=== PATIENT | male | born 1970 | race Caucasian/White ===

== ENCOUNTER 2018-11-04 15:27 | Inpatient (IN) | payer MEDICAID ==
[2018-11-04] VITALS (10 sets, daily range): BP systolic 124–151; BP diastolic 58–83
[~2018-11-04] VITALS: Ht 185.4 cm; Wt 139.0 kg
[2018-11-04 16:44] LABS: BASOPHILS # (AUTO) 0.1 X10'3 (0-0.2); EOSINOPHILS # (AUTO) 0.1 X10'3 (0-0.9); LYMPHOCYTES # (AUTO) 0.7 X10'3 (1.1-4.8); MONOCYTES # (AUTO) 0.7 X10'3 (0-0.9); NEUTROPHILS # (AUTO) 2.8 X10'3 (1.8-7.7)
[2018-11-04 16:46] LABS: EOSINOPHILS % (AUTO) 1.4 % (0-6); LYMPHOCYTES % (AUTO) 15.9 % (21-51); MEAN CORPUSCULAR HEMOGLOBIN 43.5 PG (27.0-31.0); MEAN CORPUSCULAR HGB CONC 33.1 g/dL (33.0-36.5); MEAN CORPUSCULAR VOLUME 131.6 FL (78-98); MEAN PLATELET VOLUME 7.5 FL (7.4-10.4); NEUTROPHILS % (AUTO) 64.7 % (42-75); PLATELET COUNT 115 X10'3 (140-440); RED BLOOD COUNT 1.07 X10'6 (4.70-6.10); RED CELL DISTRIBUTION WIDTH 18.9 % (11.5-14.5); WHITE BLOOD COUNT 4.4 X10'3 (4.5-11.0)
[2018-11-04 16:56] LABS: ALANINE AMINOTRANSFERASE 28 U/L (12-78); ALBUMIN 2.1 G/DL (3.4-5.0); ALKALINE PHOSPHATASE 67 IU/L (46-116); ANION GAP 14 (8-16); ASPARTATE AMINO TRANSFERASE 61 U/L (10-37); BILIRUBIN,TOTAL 12.2 MG/DL (0.1-1.0); BLOOD UREA NITROGEN 15 MG/DL (7-18); BUN/CREATININE RATIO 14.2 (5.4-32.0); CALCIUM 8.1 MG/DL (8.5-10.1); CHLORIDE 106 MMOL/L (99-107); CREATININE 1.06 MG/DL (0.60-1.10); GLUCOSE 115 MG/DL (70-104); HEMOGLOBIN 4.6 g/dl (14.0-17.9); MAGNESIUM 1.9 MG/DL (1.5-2.4); POTASSIUM 3.5 MMOL/L (3.5-5.1); SODIUM 140 MMOL/L (135-145); TOTAL CARBON DIOXIDE 20.2 MMOL/L (24-32); eGFR 74 ML/MIN
[2018-11-04 17:04] LABS: PLATELET ESTIMATE DECREASED
[2018-11-04 17:05] LABS: POLYCHROMASIA 2+
[2018-11-04 17:06] LABS: TEAR DROP CELLS 2+
[2018-11-04 17:08] LABS: ACANTHOCYTES FEW; ANISOCYTOSIS 2+; BURR CELLS FEW; ELLIPTOCYTES FEW
[2018-11-04 17:11] LABS: ROULEAUX 1+
[2018-11-04 17:34] LABS: ALBUMIN/GLOBULIN RATIO 0.4 (1.1-1.5); TOTAL PROTEIN 6.8 G/DL (6.4-8.2)
[2018-11-04] MEDS ORDERED: pantoprazole 40 MG vial IV ONE (17:35)
[2018-11-04] MEDS ORDERED: KEN0.1O TOP (17:59)
[2018-11-04] MEDS ORDERED: LEVO175T7 PO (17:59)
[2018-11-04] MEDS ORDERED: BETA15CR40 TOP (17:59)
[2018-11-04] MEDS ORDERED: OMEP20CA11 PO (17:59)
[2018-11-04] MEDS ORDERED: octreotide 100mcg/1 ml ampule IV ONE (18:15)
[2018-11-04] MEDS ORDERED: OCTREOTIDE 1,250 MCG in NS 250ml IV.SOLN IV SCH (18:15)
[2018-11-04 18:18] LABS: PARTIAL THROMBOPLASTIN TIME 35 SECONDS (22-32)
--- NOTE | 2018-11-04 20:33 | NUR ---
BARBARA GERBER, AT BEDSIDE FOR ADMISSION TO [facility]. JUST FINISHED 1ST OF 2 UNITS PRBC'S.
[2018-11-04] MEDS ORDERED: pantoprazole 40MG/NS 100ML BAG 100 ML IV SCH (21:00)
[2018-11-04] MEDS ORDERED: ondansetron/PF 4mg/2ml inj IV PRN (21:40)
[2018-11-04] MEDS ORDERED: LORazepam 2 mg/ml vial IV PRN (21:40)
[2018-11-04] MEDS ORDERED: glucagon, human recombinant 1mg kit SUBCUT PRN (21:40)
[2018-11-04] MEDS ORDERED: dextrose ORAL solution 15 GM/59 ML bottle PO PRN ×2 (21:40)
[2018-11-04] MEDS ORDERED: magnesium 2GM in 50ml NS 50 ML IV PRN (21:40)
[2018-11-04] MEDS ORDERED: acetaminophen 325mg tablet PO PRN ×2 (21:40)
[2018-11-04] MEDS ORDERED: magnesium 4gm in 100ml NS 100 ML IV PRN (21:40)
[2018-11-04] MEDS ORDERED: acetaminophen 650mg rectal suppository RC PRN (21:40)
[2018-11-04] MEDS ORDERED: dextrose 50%-water 50ml dispensing syringe IV PRN ×2 (21:40)
[2018-11-04] MEDS ORDERED: thiamine 100mg/ml 2ml inj. IV ONE (21:40)
--- NOTE | 2018-11-04 22:06 | NUR ---
Patient in room . I have received report from JONNIE Rodriguez in the ER and had the opportunity to ask questions and assume patient care.
[2018-11-04] MEDS ORDERED: octreotide inj. 1,250 MCG in normal saline 250ml IV soln 243.75 ML IV SCH (22:20)
[2018-11-04 22:22] LABS: AMYLASE 34 U/L (25-115); LIPASE 241 U/L (73-393); TROPONIN I < 0.04 NG/ML (0.0-0.05)
[2018-11-04 22:25] LABS: HEMOGLOBIN A1C < 4.5 % (4.5-6.2)
[2018-11-05] VITALS (42 sets, daily range): BP systolic 94–149; BP diastolic 41–98
[2018-11-05 00:29] LABS: RED BLOOD COUNT 1.63 X10'6 (4.70-6.10); WHITE BLOOD COUNT 3.4 X10'3 (4.5-11.0)
[2018-11-05 00:31] LABS: MEAN CORPUSCULAR HEMOGLOBIN 40.9 PG (27.0-31.0); MEAN CORPUSCULAR HGB CONC 33.1 g/dL (33.0-36.5); MEAN CORPUSCULAR VOLUME 123.5 FL (78-98); PLATELET COUNT 95 X10'3 (140-440); RED CELL DISTRIBUTION WIDTH 29.8 % (11.5-14.5)
[2018-11-05 01:01] LABS: OCCULT BLOOD STOOL NEGATIVE (Neg)
[2018-11-05] MEDS: phytonadione inj. 10 MG in normal saline 100ml IV soln 99 ML IV SCH (04:16)
[2018-11-05] MEDS: pantoprazole 40MG/NS 100ML BAG 100 ML IV SCH ×5 (05:16→20:52)
[2018-11-05 05:59] LABS: BASOPHILS # (AUTO) 0.1 X10'3 (0-0.2); EOSINOPHILS # (AUTO) 0.1 X10'3 (0-0.9); HEMOGLOBIN 7.2 g/dl (14.0-17.9); LYMPHOCYTES # (AUTO) 0.8 X10'3 (1.1-4.8); NEUTROPHILS # (AUTO) 3.8 X10'3 (1.8-7.7); WHITE BLOOD COUNT 5.2 X10'3 (4.5-11.0)
[2018-11-05 06:02] LABS: BASOPHILS % (AUTO) 1.5 % (0-1); LYMPHOCYTES % (AUTO) 14.8 % (21-51); MEAN CORPUSCULAR HEMOGLOBIN 38.8 PG (27.0-31.0); MEAN CORPUSCULAR HGB CONC 34.8 g/dL (33.0-36.5); MEAN CORPUSCULAR VOLUME 111.6 FL (78-98); MONOCYTES # (AUTO) 0.5 X10'3 (0-0.9); MONOCYTES % (AUTO) 8.7 % (2-12); PLATELET COUNT 104 X10'3 (140-440); RED BLOOD COUNT 1.86 X10'6 (4.70-6.10); RED CELL DISTRIBUTION WIDTH 29.2 % (11.5-14.5)
[2018-11-05 06:08] LABS: PARTIAL THROMBOPLASTIN TIME 33 SECONDS (22-32)
[2018-11-05 06:15] LABS: ALANINE AMINOTRANSFERASE 29 U/L (12-78); ALBUMIN 2.1 G/DL (3.4-5.0); ALKALINE PHOSPHATASE 68 IU/L (46-116); AMYLASE 32 U/L (25-115); ANION GAP 8 (8-16); BILIRUBIN,TOTAL 15.6 MG/DL (0.1-1.0); BLOOD UREA NITROGEN 15 MG/DL (7-18); BUN/CREATININE RATIO 14.7 (5.4-32.0); CALCIUM 7.8 MG/DL (8.5-10.1); CHLORIDE 107 MMOL/L (99-107); CREATININE 1.02 MG/DL (0.60-1.10); LIPASE 204 U/L (73-393); MAGNESIUM 1.8 MG/DL (1.5-2.4); SODIUM 138 MMOL/L (135-145); TOTAL CARBON DIOXIDE 23.2 MMOL/L (24-32); eGFR 77 ML/MIN
[2018-11-05 06:16] LABS: ALBUMIN/GLOBULIN RATIO 0.5 (1.1-1.5); ASPARTATE AMINO TRANSFERASE 68 U/L (10-37); GLUCOSE 137 MG/DL (70-104); PHOSPHORUS 3.8 MG/DL (2.3-4.5); TOTAL PROTEIN 6.5 G/DL (6.4-8.2)
--- NOTE | 2018-11-05 06:22 | NUR ---
Problems reprioritized. Patient report given, questions answered & plan of care reviewed with JONNIE Loya.
[2018-11-05 07:12] LABS: HEMATOCRIT 20.7 % (42.0-52.0)
[2018-11-05 07:13] LABS: ANISOCYTOSIS 3+; PLATELET ESTIMATE DECREASED
[2018-11-05 07:14] LABS: POLYCHROMASIA 2+
[2018-11-05 07:15] LABS: BURR CELLS 1+; SCHISTOCYTES 1+; TEAR DROP CELLS 1+
[2018-11-05] MEDS ORDERED: famotidine/PF 10 mg/ml inj IV SCH (08:00)
[2018-11-05] MEDS ORDERED: atenolol 50mg tablet PO SCH (08:00)
[2018-11-05] MEDS ORDERED: MVI, adult No.4 with vit. K 10 ML in dextrose 5% water 500ml 500 ML IV SCH ×2 (08:00)
[2018-11-05] MEDS ORDERED: phytonadione inj. 10 MG in normal saline 100ml IV soln 99 ML IV ONE (08:35)
[2018-11-05] MEDS: CefTRIAXone 2gm/D5W 50ml 50 ML IV SCH (08:49)
[2018-11-05] MEDS: spironolactone 25 MG tablet PO SCH ×3 (08:50→20:18)
[2018-11-05] MEDS: docusate sod 100mg capsule PO SCH ×2 (08:51→20:17)
[2018-11-05 09:34] LABS: HEMOGLOBIN 6.7 g/dl (14.0-17.9)
[2018-11-05 09:35] LABS: HEMATOCRIT 20.1 % (42.0-52.0)
[2018-11-05] MEDS ORDERED: pneumococcal 23-VAL P-sac vacc 25 mcg/0.5ml vial IMVAC ONE (10:00)
[2018-11-05] MEDS: BETAMETHASONE VALERATE 0.1% TP SCH (10:55)
[2018-11-05] MEDS ORDERED: LIDOcaine Viscous 15ml cup ONE (11:50)
[2018-11-05] MEDS ORDERED: MIDAZolam 5mg/5ml vial ONE (11:50)
[2018-11-05] MEDS ORDERED: fentaNYL/PF 50MCG/1 ML 2ML syringe ONE ×2 (11:50)
[2018-11-05] MEDS: propranolol 10mg tablet PO SCH ×2 (13:15→20:20)
[2018-11-05] MEDS ORDERED: gelatin sponge, absorbable (Gelfoam 12-7MM) sponge TP ONE ×2 (14:02)
--- NOTE | 2018-11-05 14:08 | NUR ---
Malnutrition consult. Patient presents to ED with GI bleed, history of alcohol liver cirrhosis, hypothyroidism, anemia, portal hypertension. Patient needing both thoracentesis and paracentesis. Per MD note patient has h/o heavy EtOH and cut back to 3-4 glasses of wine six months ago when diagnosed with liver failure. Observed patient, does not appear to have visible muscle or fat wasting. Advanced from NPO to Clear liquids this afternoon, no documented PO. Patient does have increased protein needs r/t liver cirrhosis, however does not appear to be malnourished at this time. Addendum: 11/05/18 at [address] Amended: Links added.
[2018-11-05 14:23] LABS: HEMOGLOBIN 7.7 g/dl (14.0-17.9); PLATELET COUNT 105 X10'3 (140-440)
[2018-11-05 14:25] LABS: HEMATOCRIT 22.6 % (42.0-52.0); MEAN CORPUSCULAR HEMOGLOBIN 37.7 PG (27.0-31.0); MEAN PLATELET VOLUME 7.4 FL (7.4-10.4); RED BLOOD COUNT 2.03 X10'6 (4.70-6.10); RED CELL DISTRIBUTION WIDTH 28.6 % (11.5-14.5); WHITE BLOOD COUNT 4.2 X10'3 (4.5-11.0)
--- NOTE | 2018-11-05 18:45 | NUR ---
Patient in room CICU 2008. I have received report from Ed CRISTINA, and had the opportunity to ask questions and assume patient care.
--- NOTE | 2018-11-05 19:45 | NUR ---
PT sitting up in recliner with no s/s of distress noted at this time. VSS. 2 visitors at bedside. PT on RA and tolerating well, O2 sat >96%. Bed is made and ready for when PT is ready to return to it. Call light is within reach. Will continue to monitor.
[2018-11-05] MEDS: triamcinolone acet 0.1% cream 15gm TP SCH (20:17)
[2018-11-05] MEDS: rifaximin 550mg tablet PO SCH (20:17)
--- NOTE | 2018-11-05 20:20 | NUR ---
JUSTO Colon called d/t receiving critical H/H 7.0/20.5. Order received for 1 unit PRBC's. Will continue to monitor.
[2018-11-05 20:24] LABS: MEAN CORPUSCULAR HEMOGLOBIN 37.6 PG (27.0-31.0); MEAN CORPUSCULAR HGB CONC 33.9 g/dL (33.0-36.5); MEAN CORPUSCULAR VOLUME 110.9 FL (78-98); MEAN PLATELET VOLUME 7.3 FL (7.4-10.4); PLATELET COUNT 96 X10'3 (140-440); RED BLOOD COUNT 1.85 X10'6 (4.70-6.10); RED CELL DISTRIBUTION WIDTH 28.7 % (11.5-14.5)
[2018-11-05 20:26] LABS: HEMATOCRIT 20.5 % (42.0-52.0)
--- NOTE | 2018-11-05 23:00 | NUR ---
Transfusion is nearly complete. PT tolerating well. PT is back to bed, no s/s of distress noted at this time. VSS. Bed is locked and low. Call light is within reach. Will continue to monitor.
[2018-11-06] VITALS (16 sets, daily range): BP systolic 92–130; BP diastolic 55–71
[2018-11-06] MEDS: phytonadione inj. 10 MG in normal saline 100ml IV soln 99 ML IV SCH ×2 (00:31→23:16)
[2018-11-06] MEDS: pantoprazole 40MG/NS 100ML BAG 100 ML IV SCH ×2 (02:16→07:36)
[2018-11-06 03:45] LABS: BASOPHILS # (AUTO) 0.1 X10'3 (0-0.2); EOSINOPHILS # (AUTO) 0.1 X10'3 (0-0.9); HEMOGLOBIN 7.7 g/dl (14.0-17.9); MEAN CORPUSCULAR VOLUME 108.7 FL (78-98); RED BLOOD COUNT 2.03 X10'6 (4.70-6.10); WHITE BLOOD COUNT 3.4 X10'3 (4.5-11.0)
[2018-11-06 03:46] LABS: BASOPHILS % (AUTO) 3.5 % (0-1); EOSINOPHILS % (AUTO) 3.4 % (0-6); LYMPHOCYTES # (AUTO) 0.6 X10'3 (1.1-4.8); LYMPHOCYTES % (AUTO) 18.6 % (21-51); MEAN PLATELET VOLUME 7.3 FL (7.4-10.4); MONOCYTES # (AUTO) 0.5 X10'3 (0-0.9); NEUTROPHILS % (AUTO) 60.5 % (42-75); PLATELET COUNT 92 X10'3 (140-440); RED CELL DISTRIBUTION WIDTH 26.9 % (11.5-14.5)
[2018-11-06 03:49] LABS: PARTIAL THROMBOPLASTIN TIME 34 SECONDS (22-32)
[2018-11-06 04:08] LABS: ALANINE AMINOTRANSFERASE 27 U/L (12-78); ALBUMIN 2.1 G/DL (3.4-5.0); ALKALINE PHOSPHATASE 62 IU/L (46-116); AMYLASE 27 U/L (25-115); ANION GAP 8 (8-16); ASPARTATE AMINO TRANSFERASE 52 U/L (10-37); BILIRUBIN,TOTAL 12.6 MG/DL (0.1-1.0); BLOOD UREA NITROGEN 18 MG/DL (7-18); BUN/CREATININE RATIO 16.5 (5.4-32.0); CALCIUM 7.6 MG/DL (8.5-10.1); CHLORIDE 107 MMOL/L (99-107); CREATININE 1.09 MG/DL (0.60-1.10); GLUCOSE 118 MG/DL (70-104); LIPASE 182 U/L (73-393); MAGNESIUM 1.8 MG/DL (1.5-2.4); POTASSIUM 3.9 MMOL/L (3.5-5.1); SODIUM 139 MMOL/L (135-145); TOTAL CARBON DIOXIDE 23.8 MMOL/L (24-32); eGFR 72 ML/MIN
[2018-11-06 04:09] LABS: ALBUMIN/GLOBULIN RATIO 0.5 (1.1-1.5); PHOSPHORUS 3.5 MG/DL (2.3-4.5); TOTAL PROTEIN 6.4 G/DL (6.4-8.2)
--- NOTE | 2018-11-06 04:26 | NUR ---
Received Critical Hct of 22.0. INSURANCE RISK ANALYST Darlene called. No new ordered received at this time. PT already has a Hemogram scheduled for 0900. Will continue to monitor.
[2018-11-06 06:18] LABS: CLARITY,URINE SLIGHTLY CLOUDY (Clear); COLOR,URINE AMBER (Yellow)
[2018-11-06 06:25] LABS: UA COLLECTION TYPE NON-SPECIFIED
[2018-11-06 06:31] LABS: HYALINE CASTS 0-3 /LPF (NEGATIVE); MUCUS STRANDS FEW /LPF (Neg); SQUAMOUS EPITHELIAL CELL,UR FEW /LPF (FEW)
[2018-11-06 06:35] LABS: BACTERIA,URINE FEW /HPF (Neg); RBC,URINE 0-2 /HPF (0-2); WBC,URINE 0-4 /HPF (0-4)
[2018-11-06 06:36] LABS: AMORPHOUS URATES 1+
--- NOTE | 2018-11-06 06:45 | NUR ---
Problems reprioritized. Patient report given, questions answered & plan of care reviewed with Mahad CRISTINA.
[2018-11-06] MEDS: multivitamins, therapeutics tablet PO SCH (07:39)
[2018-11-06] MEDS: docusate sod 100mg capsule PO SCH ×2 (07:39→20:20)
[2018-11-06] MEDS: rifaximin 550mg tablet PO SCH ×2 (07:39→20:21)
[2018-11-06] MEDS: spironolactone 25 MG tablet PO SCH ×3 (07:39→20:21)
[2018-11-06] MEDS: levoTHYROXINE 175mcg tablet PO SCH (07:39)
[2018-11-06] MEDS: CefTRIAXone 2gm/D5W 50ml 50 ML IV SCH (07:40)
[2018-11-06] MEDS: propranolol 10mg tablet PO SCH ×3 (08:00→20:21)
[2018-11-06] MEDS: triamcinolone acet 0.1% cream 15gm TP SCH ×2 (08:00→20:00)
[2018-11-06 09:24] LABS: HEMATOCRIT 27.7 % (42.0-52.0); HEMOGLOBIN 9.3 g/dl (14.0-17.9); MEAN CORPUSCULAR HEMOGLOBIN 37.1 PG (27.0-31.0); MEAN CORPUSCULAR HGB CONC 33.7 g/dL (33.0-36.5); MEAN CORPUSCULAR VOLUME 110.2 FL (78-98); MEAN PLATELET VOLUME 7.4 FL (7.4-10.4); PLATELET COUNT 82 X10'3 (140-440); RED BLOOD COUNT 2.52 X10'6 (4.70-6.10); RED CELL DISTRIBUTION WIDTH 27.8 % (11.5-14.5); WHITE BLOOD COUNT 3.8 X10'3 (4.5-11.0)
--- NOTE | 2018-11-06 09:30 | NUR ---
Ambulated patient 150 feet, patient with steady gait and tolerated well; placed back to chair.
--- NOTE | 2018-11-06 11:25 | NUR ---
Patient in room PCU 3015. I have received report from Mahad CRISTINA from ICU and had the opportunity to ask questions and assume patient care.
--- NOTE | 2018-11-06 11:53 | NUR ---
Patient transferred to [facility]-B with all belongings including glasses, cell phone, upper caser and clothes/shoes. Patient report given to Jermaine CRISTINA with all questions answered.
--- NOTE | 2018-11-06 18:10 | NUR ---
Patient in room PCU 3015. I have received report from Jaimee CRISTINA and had the opportunity to ask questions and assume patient care.
--- NOTE | 2018-11-06 19:10 | NUR ---
Positive blood culture from IV start 11/04. Gram (+) cocci in clusters. Marti REPRODUCTIVE ENDOCRINOLOGIST notified, no new orders at this time.
[2018-11-06] MEDS: pantoprazole 40mg Tablet.DR PO SCH (20:22)
[2018-11-06] MEDS ORDERED: LORazepam 2 mg/ml vial IV PRN (21:40)
[2018-11-06] MEDS ORDERED: lactulose 20gm/30ml cup PO PRN (21:40)
[2018-11-06] MEDS ORDERED: LORazepam 1 MG tablet PO PRN (21:40)
--- NOTE | 2018-11-06 23:06 | NUR ---
Patient in room PCU 3015. I have received report from Marcela CRISTINA and had the opportunity to ask questions and assume patient care.
--- NOTE | 2018-11-06 23:15 | NUR ---
Problems reprioritized. Patient report given, questions answered & plan of care reviewed with Maryam CRISTINA.
--- NOTE | 2018-11-06 23:58 | NUR ---
Received the patient in the middle of the shift. I have reviewed the RNs physical assessment and agree with her findings and will continue to monitor the patient.
[2018-11-07 02:00] VITALS: BP 104/59
[2018-11-07 06:00] VITALS: BP 126/71
--- NOTE | 2018-11-07 06:16 | NUR ---
Problems reprioritized. Patient report given, questions answered & plan of care reviewed with Armando CRISTINA.
[2018-11-07 07:26] LABS: PARTIAL THROMBOPLASTIN TIME 33 SECONDS (22-32)
[2018-11-07 07:30] LABS: ALANINE AMINOTRANSFERASE 30 U/L (12-78); ALKALINE PHOSPHATASE 82 IU/L (46-116); AMYLASE 52 U/L (25-115); ANION GAP 7 (8-16); ASPARTATE AMINO TRANSFERASE 59 U/L (10-37); BILIRUBIN,TOTAL 9.4 MG/DL (0.1-1.0); BLOOD UREA NITROGEN 18 MG/DL (7-18); BUN/CREATININE RATIO 16.5 (5.4-32.0); CALCIUM 7.8 MG/DL (8.5-10.1); CHLORIDE 108 MMOL/L (99-107); CREATININE 1.09 MG/DL (0.60-1.10); LIPASE 346 U/L (73-393); POTASSIUM 4.1 MMOL/L (3.5-5.1); SODIUM 140 MMOL/L (135-145); TOTAL CARBON DIOXIDE 25.2 MMOL/L (24-32); eGFR 72 ML/MIN
[2018-11-07 07:37] LABS: ALBUMIN/GLOBULIN RATIO 0.4 (1.1-1.5); GLUCOSE 92 MG/DL (70-104); PHOSPHORUS 3.5 MG/DL (2.3-4.5); TOTAL PROTEIN 6.6 G/DL (6.4-8.2)
[2018-11-07] MEDS: rifaximin 550mg tablet PO SCH (07:56)
[2018-11-07] MEDS: levoTHYROXINE 175mcg tablet PO SCH (07:56)
[2018-11-07] MEDS: pantoprazole 40mg Tablet.DR PO SCH (07:57)
[2018-11-07] MEDS: propranolol 10mg tablet PO SCH ×2 (07:57→13:28)
[2018-11-07] MEDS: multivitamins, therapeutics tablet PO SCH (07:57)
[2018-11-07] MEDS: docusate sod 100mg capsule PO SCH (07:58)
[2018-11-07] MEDS: spironolactone 25 MG tablet PO SCH ×2 (07:58→13:28)
[2018-11-07] MEDS: triamcinolone acet 0.1% cream 15gm TP SCH (08:00)
[2018-11-07 08:20] LABS: BASOPHILS # (AUTO) 0.1 X10'3 (0-0.2); BASOPHILS % (AUTO) 2.5 % (0-1); EOSINOPHILS # (AUTO) 0.1 X10'3 (0-0.9); EOSINOPHILS % (AUTO) 2.1 % (0-6); HEMATOCRIT 26.1 % (42.0-52.0); LYMPHOCYTES # (AUTO) 0.8 X10'3 (1.1-4.8); LYMPHOCYTES % (AUTO) 21.9 % (21-51); MEAN CORPUSCULAR HGB CONC 34.6 g/dL (33.0-36.5); MEAN CORPUSCULAR VOLUME 109.7 FL (78-98); MEAN PLATELET VOLUME 7.4 FL (7.4-10.4); MONOCYTES # (AUTO) 0.5 X10'3 (0-0.9); MONOCYTES % (AUTO) 13.2 % (2-12); NEUTROPHILS # (AUTO) 2.3 X10'3 (1.8-7.7); NEUTROPHILS % (AUTO) 60.3 % (42-75); PLATELET COUNT 100 X10'3 (140-440); RED BLOOD COUNT 2.38 X10'6 (4.70-6.10); RED CELL DISTRIBUTION WIDTH 27.5 % (11.5-14.5); WHITE BLOOD COUNT 3.8 X10'3 (4.5-11.0)
[2018-11-07 08:31] LABS: BURR CELLS 1+; HYPOCHROMASIA 1+; PLATELET ESTIMATE DECREASED; POLYCHROMASIA 2+
[2018-11-07 08:32] LABS: ANISOCYTOSIS 3+
[2018-11-07] MEDS: BETAMETHASONE VALERATE 0.1% TP SCH (10:21)
[2018-11-07 11:00] VITALS: BP 102/57
[2018-11-07] MEDS ORDERED: PROP10TA10 PO (14:29)
[2018-11-07] MEDS ORDERED: RIFA550T PO (14:29)
[2018-11-07] MEDS ORDERED: MULT-1179 PO (14:29)
[2018-11-07] MEDS ORDERED: SPIR25TA PO (14:29)
[2018-11-07] MEDS ORDERED: FURO-150 PO (14:29)
[2018-11-07] MEDS ORDERED: LEVO500T2 PO (14:31)
[2018-11-07 15:00] VITALS: BP 125/78
[2018-11-08] MEDS ORDERED: LORazepam 2 mg/ml vial IV PRN (21:40)
[2018-11-08] MEDS ORDERED: LORazepam 1 MG tablet PO PRN (21:40)
== END 2018-11-07 16:39 | disposition home or self-care (01) | DRG 241 ==
LOC: ER 15:27 → CICU 2S 22:13 → CMPBEDREQ 22:18 → PCU 3S 11-06 13:15
PROVIDERS: ADMIT Internal Medicine Critical Care Medicine; ATTEND Internal Medicine Critical Care Medicine
PROC: 30233N1 Transfusion of Nonautologous Red Blood Cells into Peripheral Vein, Percutaneous Approach (ICD-10-PCS; 2018-11-04)
PROC: 0DB68ZX Excision of Stomach, Via Natural or Artificial Opening Endoscopic, Diagnostic (ICD-10-PCS; principal; 2018-11-05)
PROC: 3E0234Z Introduction of Serum, Toxoid and Vaccine into Muscle, Percutaneous Approach (ICD-10-PCS; 2018-11-05)
PROC: 30233N1 Transfusion of Nonautologous Red Blood Cells into Peripheral Vein, Percutaneous Approach (ICD-10-PCS; 2018-11-05)
PROC: 30233K1 Transfusion of Nonautologous Frozen Plasma into Peripheral Vein, Percutaneous Approach (ICD-10-PCS; 2018-11-05)
PROC: 0W993ZZ Drainage of Right Pleural Cavity, Percutaneous Approach (ICD-10-PCS; 2018-11-05)
PROC: 0W9G3ZZ Drainage of Peritoneal Cavity, Percutaneous Approach (ICD-10-PCS; 2018-11-05)
DX: K29.71 Gastritis, unspecified, with bleeding (principal); K72.00 Acute and subacute hepatic failure without coma; K76.6 Portal hypertension; D62 Acute posthemorrhagic anemia; E87.2 Acidosis; K70.31 Alcoholic cirrhosis of liver with ascites; F10.10 Alcohol abuse, uncomplicated; E03.9 Hypothyroidism, unspecified; K21.9 Gastro-esophageal reflux disease without esophagitis; I85.10 Secondary esophageal varices without bleeding; K44.9 Diaphragmatic hernia without obstruction or gangrene; Z23 Encounter for immunization; Z79.899 Other long term (current) drug therapy
CPT/HCPCS: 32555; 36415; 43239; 49083; 71045; 80053; 81001; 82140; 82150; 82272; 82948; 83036; 83605; 83690; 83735; 83880; 84100; 84145; 84484; 85025; 85027; 85610; 85730; 86885; 86900; 86901; 86920; 87040; 87077; 87081; 90732; 93005; 93306; 96365; 96366; 96375; 96376; 97116; 97161; 97530; 99152; 99285; C9113; G0378; J0696; J2250; J2354; J3010; J3430; J7050; J7060; P9016; P9059

== ENCOUNTER 2021-08-04 11:24 | Emergency (ER) | payer MEDICARE, MEDICAID ==
[~2021-08-04] VITALS: Ht 185.4 cm; Wt 97.7 kg
[~2021-08-04 11:24] MED LIST: BETA15CR40 TOP; FURO-149 PO; FURO-150 PO; FURO20TA4 PO; GABA-530 PO; KEN0.1O TOP; LACT10SO67 PO; LEVO175T7 PO; LEVO200T8 PO; MULT-25 PO; OMEP20CA15 PO; PROP10TA10 PO; RIFA550T PO; SPIR25TA PO; SPIR25TA5 PO
[2021-08-04 12:43] LABS: BASOPHILS % (AUTO) 0.7 % (0-1); HEMATOCRIT 35.4 % (42.0-52.0); HEMOGLOBIN 11.7 g/dl (14.0-17.9); LYMPHOCYTES # (AUTO) 0.9 X10'3 (1.1-4.8); LYMPHOCYTES % (AUTO) 39.9 % (21-51); MEAN CORPUSCULAR HEMOGLOBIN 28.1 PG (27.0-31.0); MEAN CORPUSCULAR HGB CONC 33.1 g/dL (33.0-36.5); MEAN PLATELET VOLUME 8.1 FL (7.4-10.4); MONOCYTES # (AUTO) 0.3 X10'3 (0-0.9); MONOCYTES % (AUTO) 15.7 % (2-12); NEUTROPHILS # (AUTO) 0.9 X10'3 (1.8-7.7); NEUTROPHILS % (AUTO) 42.7 % (42-75); PLATELET COUNT 73 X10'3 (140-440); RED BLOOD COUNT 4.17 X10'6 (4.70-6.10); RED CELL DISTRIBUTION WIDTH 14.7 % (11.5-14.5); WHITE BLOOD COUNT 2.1 X10'3 (4.5-11.0)
[2021-08-04 13:03] LABS: ALANINE AMINOTRANSFERASE 54 U/L (12-78); ALBUMIN 3.4 G/DL (3.4-5.0); ALBUMIN/GLOBULIN RATIO 1.1 (1.1-1.5); ALKALINE PHOSPHATASE 141 IU/L (46-116); ANION GAP 9 (8-16); ASPARTATE AMINO TRANSFERASE 42 U/L (10-37); BILIRUBIN,TOTAL 1.2 MG/DL (0.1-1.0); BLOOD UREA NITROGEN 12 MG/DL (7-18); BUN/CREATININE RATIO 12.4 (5.4-32.0); CALCIUM 8.3 MG/DL (8.5-10.1); CHLORIDE 105 MMOL/L (99-107); CREATININE 0.97 MG/DL (0.60-1.10); GLUCOSE 104 MG/DL (70-104); POTASSIUM 3.9 MMOL/L (3.5-5.1); SODIUM 135 MMOL/L (135-145); TOTAL CARBON DIOXIDE 21.3 MMOL/L (24-32); TOTAL PROTEIN 6.4 G/DL (6.4-8.2); eGFR 81 ML/MIN
[2021-08-04 13:16] LABS: PLATELET ESTIMATE DECREASED; TOTAL CELLS COUNTED 100
[2021-08-04 13:17] LABS: ELLIPTOCYTES 1+
[2021-08-04] MEDS ORDERED: BEBTELOVIMAB 175 MG/2 ML VIAL IV ONE (16:30)
--- NOTE | 2021-08-04 18:33 | NUR ---
Per pharmacy, pt needs to be observed for 60 min after monoclonal antibody infusion r/t medication reaction.
--- NOTE | 2021-08-04 19:03 | NUR ---
patient vaccinated x4 with moderna. Last vaccination about 2 months ago.
[2021-08-04 19:16] VITALS: BP 159/86
[2021-08-04 19:30] LABS: CLARITY,URINE CLEAR (Clear); COLOR,URINE YELLOW (Yellow); GLUCOSE, URINE NEGATIVE (Neg); KETONES,URINE NEGATIVE (Neg); LEUKOCYTE ESTERASE ,URINE NEGATIVE (Neg); NITRITES, URINE NEGATIVE (Neg); OCCULT BLOOD,URINE NEGATIVE (Neg); PH,URINE 6.5 (4.8-8.0); PROTEIN,URINE NEGATIVE (Neg); UROBILINOGEN,URINE 0.2 E.U/dL (0.2-1.0)
[2021-08-04 19:34] LABS: UA COLLECTION TYPE URINAL
== END 2021-08-04 19:20 | disposition home or self-care (01) ==
LOC: ER 11:25
DX: U07.1 COVID-19 (principal); Z94.4 Liver transplant status; Z79.899 Other long term (current) drug therapy
CPT/HCPCS: 36415; 80053; 81003; 85007; 85025; 87635; 99285; C9803; M0222; Q0222

== ENCOUNTER 2023-06-28 08:23 | Day surgery (SDC) | payer MEDICARE, MEDICAID ==
[2023-06-28] VITALS (7 sets, daily range): BP systolic 108–143; BP diastolic 57–72; PULSE 56–68; RESP 12–18; O2SAT 96–97
[~2023-06-28] VITALS: Ht 185.4 cm; Wt 113.6 kg
[2023-06-28] MEDS ORDERED: LIDOcaine 2% Viscous 15ml cup ONE (11:11)
[2023-06-28] MEDS ORDERED: MIDAZolam 1 MG/ML 5ML VIAL ONE (11:17)
[2023-06-28] MEDS ORDERED: fentaNYL/PF 50MCG/1 ML 2ML syringe ONE (11:17)
[2023-06-28] MEDS ORDERED: diphenhydrAMINE 50 mg/ml inj ONE (11:17)
== END 2023-06-28 13:07 | disposition home or self-care (01) ==
LOC: GI LAB 08:23
PROVIDERS: ATTEND Internal Medicine Gastroenterology
DX: Z12.11 Encounter for screening for malignant neoplasm of colon (principal); R10.13 Epigastric pain; D12.4 Benign neoplasm of descending colon; K57.30 Diverticulosis of large intestine without perforation or abscess without bleeding; K64.8 Other hemorrhoids; K29.70 Gastritis, unspecified, without bleeding; I10 Essential (primary) hypertension; Z86.010 Personal history of colon polyps
CPT/HCPCS: 43239; 45385; 99153; G0500; J2250; J3010; J7030; Z7512; 43235; 45380; 88305; 99152; A4620; C1889; J1200